=== PATIENT | female | born 1980 | race Hispanic/Latino ===

== ENCOUNTER 2024-12-15 00:37 | Emergency (ER) | payer BC ==
[~2024-12-15] VITALS: Ht 157.5 cm; Wt 78.5 kg
--- NOTE | 2024-12-15 00:50 | NUR ---
SLING PLACED TO RT UPPER EXTREMITY REQUESTED BY DR PINEDA.
--- NOTE | 2024-12-15 00:57 | NUR ---
UA COLLECTED AND SENT
[2024-12-15] MEDS ORDERED: DICL20GE TP (01:19)
--- NOTE | 2024-12-15 01:19 | ERN ---
General Chief Complaint: Shoulder Injury/Pain Stated Complaint: RT SHOULDER PAIN Time Seen by MD: 00:39 Source: patient History of Present Illness Initial Comments PATIENT IS A 44-YEAR-OLD FEMALE COMING IN TO BE EVALUATED FOR RIGHT SHOULDER PAIN. PER PATIENT THIS PAIN HAS BEEN ONGOING FOR THREE WEEKS. PATIENT IS A NOT IMMOBILIZED SHOULDER IN HIS STILL USING IT. SHE STATES HE HAS BEEN TAKING ANTI- INFLAMMATORIES BUT THEY HAVE NOT BEEN WORKING. Allergies: Coded Allergies: pseudoephedrine (Unverified Allergy, Unknown, 12/15/24) Past Medical History Past Medical History: Hypertension Medical History Other: AUTOIMMUNE DISORDER Past Surgical History: None ROS Dictation CONSTITUTIONAL: NO CHILLS, NO FEVER, NO WEAKNESS, NO DIAPHORESIS, NO MALAISE. HEAD/FACE: NO SIGNS OF TRAUMA. EENT: NO EYE PAIN, NO BLURRED VISION, NO TEARING, NO DOUBLE VISION, NO EAR PAIN, NO EAR DISCHARGE, NO NOSE PAIN, NO NASAL CONGESTION, NO THROAT PAIN, NO THROAT SWELLING, NO MOUTH PAIN. RESPIRATORY: NO COUGH, NO ORTHOPNEA, NO SOB, NO STRIDOR, NO WHEEZING. CARDIOVASCULAR: NO CHEST PAIN, NO EDEMA, NO PALPITATIONS, NO SYNCOPE. GASTROINTESTINAL/ABDOMINAL: NO ABDOMINAL PAIN, NO CONSTIPATION, NO DIARRHEA, NO NAUSEA, NO VOMITING. GENITOURINARY: NO ABNORMAL DISCHARGE, NO DYSURIA, NO FREQUENT URINATION, NO HEMATURIA. NO COMPLAINTS OF PAIN IN THE GENITALS. MUSCULOSKELETAL: NO BACK PAIN, NO GOUT, JOINT PAIN, NO JOINT SWELLING, MUSCLE PAIN, NO MUSCLE STIFFNESS, NO NECK PAIN. INTEGUMENTARY: NO CHANGE IN COLOR, NO CHANGE IN HAIR/NAILS, NO DRYNESS, NO LESION, NO LUMPS, NO RASH. NEUROLOGICAL/PSYCH: NO ANXIETY, NOT DEPRESSED, NO EMOTIONAL PROBLEM, NO HEADACHE, NO NUMBNESS, NO PRE-EXISTING DEFICIT, NO HISTORY OF SEIZURES, NO TREMORS, NO WEAKNESS. HEMATOLOGIC/LYMPHATIC: NOT ANEMIC, NO HISTORY OF BLOOD CLOTS, NO APPARENT BLEEDING, NO BRUISING, GLANDS NOT SWOLLEN. ALL SYSTEMS NEGATIVE, EXCEPT NOTED. Physical Exam Physical Exam Dictation VITAL SIGNS: REVIEWED. GENERAL APPEARANCE: ALERT, ORIENTED X3, NO ACUTE DISTRESS, OBESE. HEAD AND FACE: NON-TRAUMATIC. EYES: PERRL, PINK CONJUNCTIVAS, EYELID NO TRAUMA, ANTERIOR CHAMBER CLEAR. EARS: PINNAS INTACT AND NO SIGNS OF TRAUMA OR ERYTHEMA. EAR CANALS CLEAR AND NO DISCHARGE. TMS NO ERYTHEMA. NOSE: NO DISCHARGE, NO BLEEDING. OROPHARYNX: MOUTH NORMAL, TEETH NO CARIES, TONGUE PINK. PHARYNX CLEAR, NO ERYTHEMA. TONSILS NO EXUDATES, NO ABSCESSES NOTED. MUCOUS MEMBRANE MOIST. NECK: SUPPLE, NON-TENDER, NO THYROMEGALY, NO MASSES, NO JVD, NO BRUITS. BREAST: DEFERRED. CHEST: NO TENDERNESS, NO CREPITUS, NO PARADOXICAL MOVEMENT, NO RETRACTIONS. LUNGS: CLEAR, WELL-VENTILATED, SYMMETRIC, NO RALES, NO WHEEZING, NO RHONCHI, NO STRIDOR, GOOD BREATH SOUNDS BILATERALLY. HEART: REGULAR RATE, REGULAR RHYTHM, NO MURMUR, NO GALLOPS. VASCULAR: NO PERIPHERAL EDEMA. ABDOMEN: SOFT, POSITIVE BOWEL SOUNDS, NONDISTENDED, NO GUARDING, NONTENDER, NO REBOUND, NO MASSES NO HEPATOMEGALY, NO SPLENOMEGALY, NO DENIS'S SIGN, NO HERNIAS. RECTAL: DEFERRED. GENITAL: DEFERRED. NEUROLOGICAL: NORMAL SPEECH, GROSS MOTOR FUNCTION INTACT, GROSS SENSORY FUNCTION INTACT. MUSCULOSKELETAL: NECK NONTENDER, FULL RANGE OF MOTION, BACK NONTENDER, FULL RANGE OF MOTION. EXTREMITIES: NONTENDER, FULL RANGE OF MOTION. RIGHT SHOULDER TENDERNESS TO PALPATION OF THE DELTOID REGION, PAIN ON ABDUCTION, NO DEFORMITY NOTED. SKIN: COLOR PINK, DRY, NO TURGOR, NO RASH, NO LACERATIONS, NO ABRASIONS, NO CONTUSIONS. LYMPHATICS: DEFERRED. Results Laboratory and Microbiology Lab and Micro Result Laboratory Tests Test 12/15/24 00:57 Urine HCG, Qualitative NEGATIVE (NEGATIVE) Labs Reviewed?: Yes MDM MDM: DIFFERENTIAL DIAGNOSIS: DELTOID STRAIN, SHOULDER INFLAMMATION, SHOULDER STRAIN PATIENT IS A 44-YEAR-OLD FEMALE COMING IN TO BE EVALUATED FOR RIGHT SHOULDER PAIN. ON PHYSICAL EXAM THERE IS TENDERNESS TO PALPATION PAIN ON ABDUCTION NO DEFORMITY NOTED. SLING WAS PLACED PATIENT STATES THE PAIN IMPROVED PATIENT ALSO RECEIVED ANTISPASMODICS AND HE STEROID INJECTION. PATIENT WILL BE DISCHARGED IN STABLE CONDITION. I ADVISED THE RICE TECHNIQUE TO HELP WITH THE DELTOID INFLAMMATION. ED Course Orders Procedure Category Date Status Time ,Urine Test LAB 12/15/24 Complete 00:49 Triamcinolone Acet PHA 12/15/24 Complete 40mg/Ml 1ml (Kenalog 01:00 Orphenadrine Citrate PHA 12/15/24 Complete (Norflex) 01:00 Current Medications Medications (Trade) Dose Ordered Sig/Vinod Route PRN Reason Start Time Stop Time Status Last Admin Dose Admin Orphenadrine Citrate (Norflex) 60 mg ONCE ONCE IM 12/15/24 01:00 12/15/24 01:01 DC Triamcinolone Acetonide (Kenalog 40) 40 mg ONCE ONCE IM 12/15/24 01:00 12/15/24 01:01 DC Vital Signs Date Time Temp Pulse Resp B/P (MAP) Pulse Ox O2 Delivery O2 Flow Rate FiO2 12/15/24 00:38 97.5 98 16 174/86 99 Room Air DX & DISP Disposition: Discharge Departure Impression: Primary Impression: Strain of deltoid muscle Condition: Stable Scripts Diclofenac Sodium (Voltaren Arthritis Pain) 1 % Gel..gram. 4 GM TP BID for 14 Days, #1 TUBE Prov: JODY PINEDA MD 12/15/24 Additional Instructions: FOLLOW-UP WITH PRIMARY CARE PROVIDER IN 1 TO 2 DAYS. TAKE MEDICATIONS DIRECTED HERE IN THE EMERGENCY ROOM. OKAY TO CONTINUE HOME MEDICATIONS UNLESS OTHERWISE DISCUSSED DURING YOUR VISIT IN THE EMERGENCY ROOM TODAY. RETURN TO YOUR NEAREST EMERGENCY ROOM IF SYMPTOMS WORSEN OR IF THERE IS NO IMPROVEMENT. CALL 911 IF YOU NEED IMMEDIATE ASSISTANCE. TAKE TYLENOL [id number] NEEDED AND IF NO CONTRAINDICATIONS ARE PRESENT. INCREASE ORAL HYDRATION. A WOUND CULTURE OR URINE CULTURE WAS ORDERED HERE IN THE EMERGENCY ROOM DEPARTMENT PLEASE FOLLOW-UP WITH PRIMARY CARE PROVIDER AND ADVISE THEM TO GET REPEAT PORTS FROM OUR FACILITY. IF YOU HAD ANY RINA WRAP/SPLINTS THAT WERE APPLIED HERE, PLEASE DO NOT REMOVE THEM UNTIL YOU SEE YOUR PRIMARY CARE OR SPECIALTY. REFERRALS: Referrals: SELF,REFERRAL (PCP) GUI BUTCHER LUIS A MD Time of Disposition: 01:18 JODY PINEDA MD Dec 15, 2024 01:19
--- NOTE | 2024-12-15 01:20 | NUR ---
DISCHARGE PENDING DUE TO MEDICATIONS PENDING
--- NOTE | 2024-12-15 02:11 | NUR ---
AFTER DISCHARGE PT IN [facility], PALE, C/O FEELING HOT, TINGLING TO BILATERAL FINGERS. FEELING GBW. VS OBTAINED IN [facility] ( BP OBTAINED X 2) AND TAKEN TO ROOM 8. REPORT TO DANIELLA RN, AURELIANO RN AND DR MIRIAM BREWER RN AT PT BEDSIDE
[2024-12-15] MEDS: TRIAMCINOLONE ACETONIDE 40 MG/ML 1ML VIAL IM ONE (02:21)
[2024-12-15] MEDS: ORPHENADRINE 60MG/2ML IM ONE (02:21)
[2024-12-15 03:01] VITALS: BP 130/76; PULSE 80; RESP 15; TEMP 97.6; O2SAT 99
--- NOTE | 2024-12-15 03:01 | NUR ---
PER DR PINEDA, PT READY FOR DISCHARGE. PT VOICING NO COMPLAINTS AT THIS TIME
== END 2024-12-15 03:02 | disposition home or self-care (01) ==
LOC: EDH 00:37
DX: S46.911A Strain of unspecified muscle, fascia and tendon at shoulder and upper arm level, right arm, initial encounter (principal); I10 Essential (primary) hypertension; X58.XXXA Exposure to other specified factors, initial encounter; Y93.89 Activity, other specified; Y92.89 Other specified places as the place of occurrence of the external cause; Y99.8 Other external cause status
CPT/HCPCS: 99284; 81025; 96372 ×2; J3301; J2360